=== PATIENT | female | born 1945 | race Caucasian/White ===

== ENCOUNTER 2018-03-14 12:35 | Outpatient (CLI) | payer MEDICARE ==
[2018-03-14 13:57] LABS: #Basophils 0.1 thou/uL (0.0-0.2); #Eosinphils 0.2 thou/uL (0.0-0.7); #Lymphocytes 1.4 thou/uL (1.20-3.40); #Monocytes 0.5 thou/uL (0.11-0.59); %Eosinophils 2.7 % (0.0-10.0); %Monocytes 8.5 % (0.0-10.0); %Neutrophils 64.8 % (42.0-75.0); Hemoglobin 13.4 g/dL (12.0-16.0); Mean Corpuscular HGB CONC 32.7 g/dL (32.0-36.0); Mean Corpuscular Hemoglobin 30.4 pg (27.0-31.0); Mean Platelet Volume 7.8 fL (7.4-10.4); Platelet Count 261 thou/uL (130-400); RBC Distribution Width 12.3 % (11.5-14.5); Red Blood Cell (RBC) Count 4.39 mill/uL (4.20-5.40); White Blood Cell (WBC) Count 6.2 thou/uL (4.8-10.8)
[2018-03-14 14:04] LABS: INR-International Normal Ratio 1.4; Prothrombin Time 17.3 SEC (12.0-14.7)
[2018-03-14 14:18] LABS: Anion Gap 11 mmol/L (10-20); BUN (Urea Nitrogen) 16 mg/dL (9.8-20.1); Calc. Creatinine Clearance 0 mL/min (70-130); Calcium 9.2 mg/dL (7.8-10.44); Carbon Dioxide 27 mmol/L (23-31); Chloride 107 mmol/L (98-107); Estimated GFR-MDRD 62; Glucose 126 mg/dL (80-115); Potassium 3.9 mmol/L (3.5-5.1); Sodium 141 mmol/L (136-145)
--- NOTE | 2018-03-15 07:49 | EKG ---
Test Reason : Blood Pressure : / mmHG Vent. Rate : 063 BPM Atrial Rate : 063 BPM P-R Int : 192 ms QRS Dur : 102 ms QT Int : 426 ms P-R-T Axes : 068 270 113 degrees QTc Int : 435 ms Normal sinus rhythm Right superior axis deviation Septal infarct (cited on or before 24-MAR-2015) T wave abnormality, consider lateral ischemia Abnormal ECG When compared with ECG of 24-MAR-2015 13:18, Questionable change in initial forces of Anterior leads T wave inversion less evident in Anterolateral leads Confirmed by DR. Saba DOE ([id number]) on 03/15/2018 7:49:16 AM Referred By: TIKI Confirmed By:DR. Saba DOE
== END 2018-03-14 12:36 | disposition home or self-care (01) ==
LOC: LABBT 12:35
PROVIDERS: ATTEND Orthopaedic Surgery
DX: Z01.818 Encounter for other preprocedural examination (principal); S76.111A Strain of right quadriceps muscle, fascia and tendon, initial encounter
CPT/HCPCS: 80048; 85025; 85610; 93005; 93010

== ENCOUNTER 2018-03-16 05:54 | Day surgery (SDC) | payer MEDICARE ==
[2018-03-14 12:57] VITALS: BMI 24.1
[2018-03-16] MEDS ORDERED: Midazolam HCl 2 mg/2 ml Vial ONE (06:17)
[2018-03-16] MEDS ORDERED: Fentanyl 100 MCG/2 ML VIAL ONE (06:17)
[2018-03-16] MEDS ORDERED: Dexamethasone 4 mg/ml Vial ONE (06:57)
[2018-03-16 07:03] LABS: PTT 27.1 SEC (22.9-36.1)
[2018-03-16] MEDS ORDERED: CEFAZOLIN 2 GM/50 ML BAG ONE (07:20)
[2018-03-16] MEDS ORDERED: Meperidine HCl/PF 25 MG/ML VIAL ONE (09:00)
--- NOTE | 2018-03-16 11:49 | OP ---
DATE OF PROCEDURE: 03/16/2018 PREOPERATIVE DIAGNOSIS: Partial rupture, right quadriceps tendon. POSTOPERATIVE DIAGNOSIS: Partial rupture, right quadriceps tendon. PROCEDURE PERFORMED: Open repair, partial quadriceps tendon rupture. SURGEON: Fito Gavin M.D. [employer] PUSHER: Percy Lui PA-C. BLOOD LOSS: Minimal. COMPLICATIONS: None. ANESTHESIA: She had a general anesthetic. She also had a local block. She has had a nerve block. IMPLANTS: We used a small titanium anchor to help repair the portion of the tendon that was torn. INDICATIONS: This is a 72-year-old female, who injured her knee about 2-1/2 weeks ago. She had a hy perflexion injury and afterwards was unable to fully extend the leg. It was felt she had a partial q uadriceps tendon rupture, but since she had a total knee replacement performed about 3 years ago, an MRI was unobtainable. At this time, she opted for surgery. PROCEDURE IN DETAIL: After above consent forms were explained and signed, she was taken back to the operating room and at this time was given general anesthetic. Once the level of anesthesia was appro priate, the tourniquet was placed on the right thigh and the leg was prepped and draped in the standa rd surgical fashion. The limb was exsanguinated and the tourniquet was taken to 300 mmHg. The top p ortion of the previous scar was cut down through with a 10 blade. The Bovie was used to coagulate an y brisk venous bleeding. At this time, direct palpation and visualization of the tendon showed the t op portion of the entire tendon to be intact; however, laterally right next to the patella insertion, there appeared to be a divot and the divot was palpable. Therefore, I made a longitudinal lateral i ncision of the quad tendon and was able to stick my finger underneath into the joint and palpate the quadriceps rupture. Also, to confirm this, hemorrhagic blood was evacuated from the knee joint. The refore, I took this longitudinal incision all the way down to the patella, made a L flap right off th e bone, and at this time, we could directly visualize the torn tendon. At this time, we thoroughly i rrigated and dried. Tissue was removed off the top portion of the patella. Secondary to the plastic underneath, a small anchor was inserted. We drilled and then placed the anchor without problem. Th is suture was then run through the torn portion of the quadriceps and then tied bringing the tendon b ack down to the bone. We then oversewed this with a #2 running Vicryl suture. At this time, the storm wahl was put through range of motion and was found to have 125 of flexion, full extension, and nice tens ion on the quadriceps tendon with flexion. We thoroughly irrigated and dried. We then used a 2-0 ru nning Quill as well as a 3-0 on the subcutaneous tissue. SurgiSeal skin glue was used on top. Once this dried, a big sterile bulky dressing was applied as well as a hinge motion brace locked at 0. Th e patient was awakened. She was taken to the recovery room in stable condition. All counts were cor rect at the end of the case and she did receive preoperative IV antibiotics.
== END 2018-03-16 11:10 | disposition home or self-care (01) ==
LOC: SDC 05:54
PROVIDERS: ATTEND Orthopaedic Surgery
PROC: 0LML0ZZ Reattachment of Right Upper Leg Tendon, Open Approach (ICD-10-PCS; principal; 2018-03-16)
DX: S76.111A Strain of right quadriceps muscle, fascia and tendon, initial encounter (principal); F41.9 Anxiety disorder, unspecified; M79.7 Fibromyalgia; Z79.01 Long term (current) use of anticoagulants; Z79.899 Other long term (current) drug therapy; Z88.8 Allergy status to other drugs, medicaments and biological substances; Z95.2 Presence of prosthetic heart valve; Z96.651 Presence of right artificial knee joint; Z98.890 Other specified postprocedural states; X58.XXXA Exposure to other specified factors, initial encounter
CPT/HCPCS: 27385; 85610; 85730; 96374; 97139; G8978; G8979; G8980; J1100; J2175; J2250; J3010; J3370